=== PATIENT | female | born 1975 | race Caucasian/White ===

== ENCOUNTER 2017-02-21 00:10 | Observation (INO) | payer BC ==
[2017-02-21] VITALS (9 sets, daily range): BP systolic 101–129; BP diastolic 55–71; PULSE 64–108; TEMP 98–98.2
[~2017-02-21] VITALS: Ht 175.3 cm; Wt 69.4 kg
[2017-02-21 02:01] LABS: INR 0.9 (0.8-3.0)
[2017-02-21 02:17] LABS: PARTIAL THROMBOPLASTIN TIME 32.9 SECONDS (26.0-37.0)
[2017-02-21 02:18] LABS: B-TYPE NATRIURETIC PEPTIDE 52 pg/mL (0-125)
[2017-02-21 02:36] LABS: TROPONIN-I < 0.012 ng/mL (0.000-0.034)
[2017-02-21 08:12] LABS: CREATININE, serum 0.7 mg/dL (0.52-1.25)
[2017-02-24 12:20] LABS: PROTEIN C ACTIVITY 124 % (70-150)
[2017-02-24 12:23] LABS: PROTEIN S ACTIVITY 118 % (50-149)
[2017-02-25 11:16] LABS: VW COAG FACTOR 103 % (55 - 200)
[2017-02-25 12:32] LABS: VW FACTOR ACTIVITY 120 % (55 - 200); VW FACTOR ANTIGEN 141 % (55 - 200)
[2017-02-27 13:55] LABS: FACTOR V 76 % (50-150)
== END 2017-02-21 16:30 | disposition home or self-care (01) ==
LOC: MEDICAL 00:10
PROVIDERS: Internal Medicine; Internal Medicine Cardiovascular Disease; Nurse Practitioner Family
DX: R07.89 Other chest pain (principal); F17.210 Nicotine dependence, cigarettes, uncomplicated; Z85.41 Personal history of malignant neoplasm of cervix uteri
CPT/HCPCS: 99238; A9502; G0378; J1650; J2785; J7030